=== PATIENT | male | born 1970 | race Caucasian/White ===

== ENCOUNTER 2019-04-01 14:51 | Inpatient (IN) | payer OTHER ==
[~2019-04-01 14:51] MED LIST: Iopamidol 300 61% 100 ML VIAL FS ONE
--- NOTE | 2019-04-01 15:22 | RAD ---
EXAM: XR Pelvis Minimum 3 Views DATE: 04/01/2019 3:08 PM INDICATION: History of trauma COMPARISON: None. FINDING: There is diastases of the symphysis pubis measuring 2.4 cm. There is contrast seen within t he bladder and distal ureters likely from prior IV contrast demonstration. There is circumferential wasting of the mid to lower bladder are suspicious for the presence of a pelvic hematoma, likely from the patient's pelvic ring injury. IMPRESSION:Mass effect on the mid to lower aspect of the bladder suspicious for presence of intrapelv ic hematoma. No extraluminal extravasation of contrast is seen from the bladder. Diastases of the symphysis pubis.
[2019-04-01] MEDS ORDERED: Fentanyl 100 MCG/2 ML VIAL ONE ×2 (16:05→16:08)
[2019-04-01] MEDS ORDERED: Morphine 4 MG/ML VIAL SLOW IVP PRN ×2 (16:11→19:43)
[2019-04-01] MEDS ORDERED: Dextrose 50% Abboject 50 ML SYRINGE SLOW IVP PRN (16:11)
[2019-04-01] MEDS ORDERED: Dextrose 5% in Water 1,000 ML IV PRN (16:11)
[2019-04-01] MEDS ORDERED: Ondansetron PF 4 MG/2 ML Vial IVP PRN (16:11)
[2019-04-01] MEDS ORDERED: Ondansetron ODT 4 MG TAB PO PRN (16:11)
[2019-04-01] MEDS ORDERED: hydrALAZINE 20 MG/ML VIAL SLOW IVP PRN (16:11)
[2019-04-01] MEDS ORDERED: CEFAZOLIN 2 GM in Premix Bag 1 BAG IVPB SCH (16:30)
--- NOTE | 2019-04-01 16:34 | RAD ---
EXAM: Retrograde urethrogram HISTORY: Report of blood at the urethral meatus COMPARISON: None FINDINGS: A retrograde urethrogram was performed by instilling contrast into the patient's urethra. T here is no evidence of leakage of contrast from the urethra and contrast passed back into the urinary bladder. IMPRESSION: Normal retrograde urethrogram
[2019-04-01 17:05] LABS: Hemoglobin 13.5 g/dL (14.0-18.0); Mean Corpuscular HGB CONC 34.7 g/dL (32.0-36.0); Mean Corpuscular Hemoglobin 31.7 pg (27.0-31.0); Mean Corpuscular Volume 91.5 fL (78.0-98.0); Mean Platelet Volume 7.1 fL (7.4-10.4); Platelet Count 227 thou/uL (130-400); RBC Distribution Width 11.6 % (11.5-14.5); Red Blood Cell (RBC) Count 4.24 mill/uL (4.70-6.10); White Blood Cell (WBC) Count 17.4 thou/uL (4.8-10.8)
--- NOTE | 2019-04-01 17:09 | HP ---
REQUESTING DOCTOR: Carli. CONSULTS: Orthopedic Surgery, Dr. Ray. CHIEF COMPLAINT: Pelvic pain. HISTORY OF PRESENT ILLNESS: This is a 49-year-old gentleman, who was a transfer from [facility] with a pelvic fracture, level 2 trauma activation. The patient was riding the horse as he works for the [employer] system, the horse bucked causing him to come up out of the saddle and land back on the saddle onto his buttocks. The patient reported immediate pain to the buttocks area. The patient denies any loss of consciousness or hitting his head. The patient was evaluated at [facility] ER, and a CT pelvis was obtained. The patient had no episodes of hypotension. The patient arrived via air ambulance, who also reports no episodes of hypotension. The patient was given morphine, Dilaudid, Zofran, and Toradol 30 mg for pain prior to arrival. The patient also received 1 L of normal saline prior to arrival. The patient is awake and alert with GCS 15. The patient's pain is well controlled at this time. PAST MEDICAL HISTORY: The patient reports pelvic fracture in 2001, nonoperative. ALLERGIES: DENIES ANY DRUG ALLERGIES. MEDICATIONS: Denies medication use. PAST SURGICAL HISTORY: Denies. FAMILY HISTORY: Reports dad with coronary artery disease and diabetes. REVIEW OF SYSTEMS: A 10-point review of systems is negative unless otherwise indicated in the above HPI. PHYSICAL EXAMINATION: VITAL SIGNS: Blood pressure 119/63, pulse 91, respirations 14, temperature 97.8 , SpO2 of 97% on room air. GENERAL: Well-appearing, middle-aged male, in no acute distress. HEENT: Head is atraumatic and normocephalic. Pupils are equal bilateral. Extraocular muscles are intact. Oropharynx exam is unremarkable. NECK: Normal range of motion. No cervical spine tenderness. Trachea, midline. RESPIRATORY: Equal chest rise and fall. Bilateral breath sounds clear. No wheezing, rales, or rhonchi. CARDIOVASCULAR: Regular rate. Regular rhythm. No murmurs. No pedal edema. GI: Abdomen is soft, nontender, and nondistended. Active bowel sounds. PELVIS: Minimal tenderness to palpation. Pelvic binder in place. EXTREMITIES: Moves all extremities. 2+ pulses in all extremities. Normal movement and sensation in all extremities. Strength is 5/5 in all extremities. NEUROLOGIC: No focal deficits. LABORATORY DATA: Pending. IMAGING STUDIES: Chest x-ray, no acute abnormality. Pelvis x-ray, impression; mass effect on the [id number] aspect of the bladder suspicious for presence of intrapelvic hematoma. No extraluminal extravasation of contrast seen from the bladder. Diastasis of the symphysis pubis. Retrograde cystourethrogram, negative. ASSESSMENT: 1. Bucked from horse landing on saddle. 2. Right sacral fracture. 3. Diastasis of the symphysis pubis. 4. Acute traumatic pain. PLAN: We will obtain a retrograde cystourethrogram. The patient has been evaluated by Orthopedic Surgery, Dr. Ray, who plans to take the patient to the OR tomorrow for repair of his right sacral fracture. We will place the patient on a pain regimen. The patient will be n.p.o. after midnight and placed on maintenance IV fluids normal saline at 100 mL an hour. The patient will be bedrest until postop. We will place a PT/OT consult to evaluate and treat postop. The patient was examined in the emergency room by Dr. Galaviz. The plan was discussed with the patient, who agrees. Job ID: [id number] MTDD
[2019-04-01 17:21] LABS: Band 12 % (5-11); Lymphocytes 6 % (21-51); MDiff Complete? YES; Monocytes 2 % (0-10); Neutrophil 79 % (42-75); Platelet Morphology Comment Appears Adequate; RBC Morphology Normal; Reactive Lymphocytes 1 % (0-10)
[2019-04-01] MEDS ORDERED: Adacel (T-DAP) 0.5 ML SYRINGE ONE (17:24)
[2019-04-01 17:28] LABS: ALT (SGPT) 25 U/L (8-55); AST (SGOT) 23 U/L (5-34); Albumin 3.7 g/dL (3.5-5.0); Alkaline Phosphatase 68 U/L (40-110); Anion Gap 15 mmol/L (10-20); BUN (Urea Nitrogen) 13 mg/dL (8.9-20.6); Bilirubin, Total 0.5 mg/dL (0.2-1.2); Calc. Creatinine Clearance 0 mL/min (70-130); Carbon Dioxide 20 mmol/L (22-29); Chloride 108 mmol/L (98-107); Estimated GFR-MDRD 89; Globulin 2.8 g/dL (2.4-3.5); Glucose 140 mg/dL (70-105); Potassium 4.6 mmol/L (3.5-5.1); Protein, Total 6.5 g/dL (6.0-8.3); Sodium 138 mmol/L (136-145)
[2019-04-01] MEDS: Sodium Chloride 0.9% 1,000 ML IV SCH (18:31)
[2019-04-01] MEDS ORDERED: Cyclobenzaprine 10 MG TAB PO PRN (19:44)
[2019-04-01] MEDS ORDERED: traMADol HCl 50 MG TAB PO PRN (19:44)
[2019-04-01] MEDS ORDERED: Famotidine/PF 20 mg/2ml Vial ONE (20:59)
[2019-04-01] MEDS ORDERED: traMADol HCl 50 MG TAB ONE (20:59)
[2019-04-01] MEDS: traMADol HCl 50 MG TAB PO PRN (21:08)
[2019-04-01] MEDS: Famotidine/PF 20 mg/2ml Vial SLOW IVP SCH (21:08)
[2019-04-01] MEDS: Senokot S 8.6-50 MG TAB PO SCH (21:35)
[2019-04-01 22:20] VITALS: BMI 28.8
[2019-04-01] MEDS: Acetaminophen 500 MG TAB PO SCH (23:00)
--- NOTE | 2019-04-02 01:17 | CON ---
DATE OF CONSULTATION: 04/01/2019 REQUESTING PHYSICIAN: Thomas Galaviz DO BRIEF HISTORY OF PRESENT ILLNESS: The patient is a 49-year-old gentleman, who was transferred from [facility] to [facility] for treatment of a pelvis injury. The patient reports that he was riding a horse when the horse bucked causing him to leave the saddle, and then upon landing back onto the saddle, he reports immediate pain in the right buttock and some pain in the groin area. There was no loss of consciousness. He was evaluated in the emergency room locally where CT scan of the pelvis was obtained that showed widening of the symphysis pubis, and with this finding, a phone consultation was performed with Dr. Thomas Galaviz, who agreed to accept the patient in transfer. The patient was air flighted down to [place] and patient now examined in the emergency room. He is awake and alert. Denies loss of consciousness and his principal complaint is that of right posterior sacral discomfort. Of note, the patient has a prior pelvis fracture in 2001 with nonsurgical management. Unfortunately, we do not have any records from this injury, its treatment, or any sequelae with respect to radiographic findings. PAST MEDICAL HISTORY: Otherwise healthy. PAST SURGICAL HISTORY: Negative. MEDICATIONS: None. ALLERGIES: NONE KNOWN. FAMILY HISTORY: Noncontributory for this fracture. SOCIAL HISTORY: Patient denies any tobacco use or alcohol use or recreational drug use. REVIEW OF SYSTEMS: No recent fevers, chills, or sweats. Denies chest pain or shortness of breath. Denies numbness or tingling in his lower extremities. PHYSICAL EXAMINATION: VITAL SIGNS: Temperature of 97.8, heart rate of 91, respiratory rate of 14, and blood pressure of 119/63. GENERAL: He was found to be awake, alert, and in no acute distress. He does have a pelvic binder on and appropriately positioned. HEENT: Atraumatic and normocephalic. HEART: Shows a regular rate and rhythm without murmur. LUNGS: Clear to auscultation bilaterally with excellent breath sounds. His chest wall is nontender. ABDOMEN: Flat, soft, and nontender. PELVIS: Remarkable for a pelvic binder that is in place. This binder was removed, and with aggressive compression of the iliac wings, only mild discomfort at the right sacrum was elicited. With separation of the iliac wings, no real pain is felt anteriorly. With deep palpation at the symphysis pubis, some mild discomfort is felt; however, this is quite mild and there is no evidence of hematoma or bruising at this time anteriorly. EXTREMITIES: Bilateral upper extremities are atraumatic at shoulder, elbow, wrist, and hand. He has intact sensation in the radial, median, and ulnar distributions. The lower extremities remarkable for normal motor function of the ankle and feet. He has excellent strength with dorsi and plantar flexion of the ankles. With log-rolling of the right thigh, however, he does feel pain at the right sacral region. Further testing of the proximal thigh was not performed due to the pain that this elicits within the pelvis. LABORATORY DATA: He was found to have a white count of 17.4, a hematocrit of 38.8, and platelets 227,000. X-RAYS: While in the emergency room, an AP pelvis as well as inlet and outlet x-rays were obtained, these remarkable for widening of the symphysis pubis with approximately 2 cm of widening. Unfortunately, there is contrast within the bladder from his workup at [facility], and as such, the sacrum cannot be well visualized. CT scan from [facility] of the pelvis was also reviewed. This is remarkable for a zone 2 right-sided sacral fracture with mild displacement. The SI joints appear anatomically positioned. He is found to have some beaking at the anterior portion of the sacroiliac joint consistent with a prior injury in this area. The acetabuli bilaterally are intact. I do not appreciate any pubic rami fractures. He does have this symphyseal widening, which on CT scan measures approximately 21 mm. ASSESSMENT: Horseback injury with pelvic ring injury consisting of right zone 2 sacral fracture with mild displacement and diastasis of the symphysis pubis. However, it is not clear whether this is acute, chronic, or acute on chronic given his past history of pelvic injury. PLAN: At this time, the patient is admitted to the Trauma Service. I have discussed with patient that we would like to proceed with repair of the right sacral fracture, and while he is in the operating room, perform an examination under anesthesia of the pelvic ring to see if he widens with distraction of the iliac wings to try and determine whether this symphysis diastasis is an acute finding. If indeed it is acute, we will proceed with plating anteriorly as well. Today, I briefly discussed with the patient the nature of this procedure. Informed consent will be obtained prior to surgery. He will be placed n.p.o. after midnight with plans to proceed with surgery tomorrow afternoon. Job ID: [id number]
[2019-04-02] MEDS: Sodium Chloride 0.9% 1,000 ML IV SCH ×4 (02:06→23:58)
[2019-04-02] MEDS: traMADol HCl 50 MG TAB PO PRN ×2 (02:32→09:26)
--- NOTE | 2019-04-02 03:37 | PRG ---
DATE OF SERVICE: 04/01/2019 SUBJECTIVE: The patient was seen this evening during rounds. He was lying in bed and comfortable. He reported that his pain had been well controlled, but he felt his pain medications were wearing off. Also reported that the pelvic binder appeared very tight. Dr. Ray did report it was okay to be loosened and I did that, the patient reported relief. Castillo is in place. OBJECTIVE: VITAL SIGNS: Temperature 98.7, pulse 92, respirations 16, oxygen saturation 96% on room air, and blood pressure 100/67. GENERAL: Well-appearing middle-aged male, lying in bed with no signs of acute distress. PULMONARY: Equal chest rise and fall. No signs of acute respiratory distress. ASSESSMENT: 1. Status post saddle injury from bucking horse. 2. Right sacral fracture. 3. Questionable intrapelvic hematoma. 4. History of pelvic fracture in 2001 with pubic symphysis widening. 5. Acute traumatic pain, improving. PLAN: Continue current n.p.o. at midnight. Normal saline at 100 an hour. Continue Castillo. Continue pelvic binder for comfort per Dr. Ray. The patient is to go to the OR tomorrow. Postoperatively, he will work with Physical and Occupational Therapy and will follow up weightbearing instructions from Orthopedic Surgery. Job ID: [id number]
[2019-04-02] MEDS: Acetaminophen 500 MG TAB PO SCH ×4 (05:11→23:52)
[2019-04-02 05:16] LABS: #Lymphocytes 2.4 thou/uL (1.20-3.40); #Monocytes 0.9 thou/uL (0.11-0.59); #Neutrophils 6.2 thou/uL (1.40-6.50); %Basophils 0.4 % (0.0-1.0); %Eosinophils 0.4 % (0.0-10.0); %Lymphocytes 24.8 % (21.0-51.0); %Monocytes 9.3 % (0.0-10.0); Mean Corpuscular Volume 91.7 fL (78.0-98.0); Mean Platelet Volume 7.1 fL (7.4-10.4); Platelet Count 203 thou/uL (130-400); RBC Distribution Width 11.7 % (11.5-14.5); Red Blood Cell (RBC) Count 3.35 mill/uL (4.70-6.10); White Blood Cell (WBC) Count 9.6 thou/uL (4.8-10.8)
[2019-04-02 05:34] LABS: Anion Gap 10 mmol/L (10-20); BUN (Urea Nitrogen) 15 mg/dL (8.9-20.6); Calc. Creatinine Clearance 113 mL/min (70-130); Calcium 7.7 mg/dL (7.8-10.44); Carbon Dioxide 22 mmol/L (22-29); Chloride 107 mmol/L (98-107); Estimated GFR-MDRD 82; Glucose 100 mg/dL (70-105); Magnesium 1.8 mg/dL (1.6-2.6); Sodium 135 mmol/L (136-145)
[2019-04-02 05:36] LABS: Phosphorus 3.7 mg/dL (2.3-4.7)
[2019-04-02] MEDS ORDERED: Magnesium Sulfate 2 GM in Sodium Chloride 0.9% 100 ML IVPB SCH (08:00)
[2019-04-02] MEDS ORDERED: Magnesium 2 GM/50 ML 2 GM in Premix Bag 1 BAG IVPB SCH (08:15)
[2019-04-02] MEDS ORDERED: Rocuronium Bromide 10 MG/ML (10ML VIAL) ONE (09:19)
[2019-04-02] MEDS ORDERED: Glycopyrrolate 0.2 MG/ML 5 ML SYRINGE ONE (09:19)
[2019-04-02] MEDS ORDERED: Metoclopramide HCl 10 MG/2 ML VIAL ONE (09:19)
[2019-04-02] MEDS ORDERED: PROPOFOL 200 MG/20 ML VIAL ONE (09:19)
[2019-04-02] MEDS ORDERED: Dexamethasone 20 MG/5 ML VIAL ONE (09:19)
[2019-04-02] MEDS ORDERED: Lidocaine 1% PF 5 ML VIAL ONE (09:19)
[2019-04-02] MEDS ORDERED: Ondansetron PF 4 MG/2 ML Vial ONE (09:19)
[2019-04-02] MEDS ORDERED: PHENYLEPHRINE-NS 100 MCG/ML 10 ML SYRINGE ONE (09:19)
[2019-04-02] MEDS: Famotidine/PF 20 mg/2ml Vial SLOW IVP SCH ×2 (09:21→21:15)
[2019-04-02] MEDS: Senokot S 8.6-50 MG TAB PO SCH ×2 (09:48→21:14)
[2019-04-02] MEDS: Polyethylene Glycol 3350 17 GM Packet PO SCH (09:48)
[2019-04-02] MEDS ORDERED: diphenhydrAMINE 25 MG CAP PO PRN (11:41)
[2019-04-02] MEDS ORDERED: HYDROmorphone 10 mg/100 ml CADD IVPB PRN (11:41)
[2019-04-02] MEDS ORDERED: Naloxone HCl 0.4 mg/ml Vial IV PRN (11:41)
[2019-04-02] MEDS ORDERED: Promethazine HCl 25 MG/ML VIAL IM PRN ×2 (11:41→13:01)
[2019-04-02] MEDS ORDERED: diphenhydrAMINE 50 MG/ML VIAL IM PRN (11:41)
[2019-04-02] MEDS ORDERED: diphenhydrAMINE 50 MG/ML VIAL IVP PRN (11:41)
[2019-04-02] MEDS ORDERED: Communication Order-Pharmacy FS SCH (11:45)
[2019-04-02] MEDS ORDERED: Fentanyl 100 MCG/2 ML VIAL ONE (12:08)
--- NOTE | 2019-04-02 12:22 | PDOC.GSPN ---
Surgery Progress Note: Subj - Subjective Narrative: Pt is a 49 year old M s/p R sacral fracture and pubic symphisis diastasis sustained after getting bucked off horse and landing back on saddle, post injury day 1. Patient is doing well. Patient reports pain is tolerable when not moving or coughing. Denies CP, SOB. He is NPO in preparation for surgery today. Surgery Progress Note: Obj - Vital signs Vital signs: Vital Signs - Most Recent Temp Pulse Resp BP Pulse Ox 98.0 F 80 18 105/65 94 L 04/02/19 08:01 04/02/19 08:01 04/02/19 08:01 04/02/19 08:01 04/02/19 09:21 - Physical Exam General: no distress, well developed, well nourished Cardiovascular: regular rate and rhythm Respiratory: clear to auscultation, normal expansion, normal respiratory effort Abdomen: soft, non tender, nondistended, positive bowel sounds Psychiatric: memory intact, oriented to time, oriented to person, oriented to place Additional exam: Castillo catheter is placed. No evidence of gross hematuria. Surgery Progress Note: Results - Labs Result Diagrams: 04/04/19 04:54 04/04/19 04:54 Lab results: Laboratory Results - last 24 hr 04/02/19 04/02/19 04/02/19 04:40 04:40 04:40 WBC 9.6 RBC 3.35 L Hgb 11.0 L Hct 30.7 L MCV 91.7 MCH 33.0 H MCHC 36.0 RDW 11.7 Plt Count 203 MPV 7.1 L Neutrophils % 65.0 Lymphocytes % 24.8 Monocytes % 9.3 Eosinophils % 0.4 Basophils % 0.4 Neutrophils # 6.2 Lymphocytes # 2.4 Monocytes # 0.9 H Eosinophils # 0.0 Basophils # 0.0 Sodium 135 L Potassium 4.0 Chloride 107 Carbon Dioxide 22 Anion Gap 10 BUN 15 Creatinine 0.98 Estimated GFR (MDRD) 82 Glucose 100 Calcium 7.7 L Phosphorus 3.7 Magnesium 1.8 Surgery Progress Note: A/P - Plan Plan: Assessment: 1. s/p bucked off horse and landing on saddle 2. Right sacral fracture 3. Pubic symphisis diastasis 4. History of previous pelvic fracture in 2001, treated non operatively Plan: 1. OR today for repair of sacral fracture and evaluation and possible treatment of pubic symphasis diastasis 2. PT/OT postoperatively 3. 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 DVT PPX postoperatively Addendum - Physician - Physician Attestation Date/Time: 04/04/19 1151 I personally performed or re-performed the physical examination and medical decision making. I have verified all student documentation or findings, including history, physical exam and/or medical decision making.
[2019-04-02] MEDS ORDERED: Meperidine HCl/PF 25 MG/ML VIAL SLOW IVP PRN (13:01)
[2019-04-02] MEDS ORDERED: Promethazine HCl 25 MG/ML VIAL SLOW IVP PRN (13:01)
[2019-04-02] MEDS ORDERED: HYDROmorphone 2 MG/ML VIAL SLOW IVP PRN (13:01)
[2019-04-02] MEDS ORDERED: HYDROmorphone 2 MG/ML VIAL ONE (13:51)
--- NOTE | 2019-04-02 14:14 | RAD ---
EXAM: XR Pelvis AP STANDARD PROVIDED CLINICAL HISTORY: ORIF pelvis COMPARISON: None FINDINGS: 2 long screws overlie the sacrum and right sacroiliac joint. A metallic plate and multiple screws tra nsfix the pubic bones and superior pubic rami. The second and third screws from the right extend just distal to the cortex of the pubic bone and inferior pubic ramus. Skin clips overlie the lower pe lvis. Temperature probe is seen overlying the midline. IMPRESSION: ORIF pelvis as described above.
[2019-04-02] MEDS ORDERED: Meperidine HCl/PF 25 MG/ML VIAL ONE (14:43)
[2019-04-02 15:57] LABS: #Eosinphils 0.1 thou/uL (0.0-0.7); #Lymphocytes 1.8 thou/uL (1.20-3.40); #Monocytes 0.6 thou/uL (0.11-0.59); #Neutrophils 10.3 thou/uL (1.40-6.50); %Basophils 0.2 % (0.0-1.0); %Eosinophils 0.9 % (0.0-10.0); %Monocytes 4.4 % (0.0-10.0); %Neutrophils 80.5 % (42.0-75.0); Hemoglobin 11.8 g/dL (14.0-18.0); Mean Corpuscular HGB CONC 34.7 g/dL (32.0-36.0); Mean Corpuscular Hemoglobin 32.3 pg (27.0-31.0); Mean Corpuscular Volume 93.1 fL (78.0-98.0); Mean Platelet Volume 7.3 fL (7.4-10.4); Platelet Count 188 thou/uL (130-400); RBC Distribution Width 11.7 % (11.5-14.5); Red Blood Cell (RBC) Count 3.64 mill/uL (4.70-6.10); White Blood Cell (WBC) Count 12.8 thou/uL (4.8-10.8)
[2019-04-02] MEDS: CEFAZOLIN 2 GM in Premix Bag 1 BAG IVPB SCH (21:14)
--- NOTE | 2019-04-02 22:31 | OP ---
DATE OF PROCEDURE: 04/02/2019 PROCEDURES PERFORMED: Open reduction and internal fixation of unstable pelvic fracture including pubic symphysis plating and right sacroiliac screw placement. PREOPERATIVE DIAGNOSIS: Unstable pelvic ring fracture with sacral fracture and pubic symphysis disruption. POSTOPERATIVE DIAGNOSIS: Unstable pelvic ring fracture with sacral fracture and pubic symphysis disruption. COMPLICATIONS: None. ESTIMATED BLOOD LOSS: 100 mL. CO-SURGEON: Steven Ray MD IMPLANTS: Synthes 6-hole pubic symphysis plate was utilized and two 7.3 mm cannulated screws. INDICATIONS: Mr. Andrew is a 49-year-old male, who was injured while being bucked from a horse. He fractured his pelvis. He was deemed to have an unstable pelvic fracture and was indicated for operative intervention. Risks have been reviewed in detail. He wanted to proceed with the operation. DESCRIPTION OF PROCEDURE: Mr. Andrew was identified in the preoperative holding area. His correct extremities were marked. He was carried to the operating room. He was positioned supine. General anesthesia was induced. At this point, we used intraoperative fluoroscopy to stress his pubic symphysis. He had a large amount of mobility and diastasis and clearly had an unstable fracture. We prepped and draped the pelvis at this point and proceeded with fixation. We made an anterior incision over the pubic symphysis in a Pfannenstiel type incision. We dissected down through the subcutaneous tissues to the rectus abdominus. It was split. We then exposed the disrupted pubic symphysis. We placed a lap sponge over the bladder to protect the bladder. Next, we removed hematoma as well as damaged cartilage from the pubic symphysis. We reduced the fracture using a reduction forceps. We then applied a 6-hole pubic symphyseal plate. Six screws were placed. We guided these with intraoperative x-ray. This concluded the anterior aspect of the surgery. Next, we moved to the sacrum. We obtained appropriate inlet and outlet x-ray views as well as a lateral view of the sacrum. We obtained appropriate start point for a guidewire. We placed two guidewires in the S1 body through the ileum. These were guided carefully with intraoperative x-ray. We overdrilled the guidewires. We then placed two 7.3 mm cannulated screws. These were compressed appropriately to reduce our fracture. We took final images. The patient was taken to the recovery room at this point in good condition without complication. Job ID: [id number]
--- NOTE | 2019-04-03 00:40 | PRG ---
DATE OF SERVICE: 04/02/2019 SUBJECTIVE: The patient was seen this evening during rounds. He is postoperative day 0 after fixation of his right sacral fracture with associated diastasis of the pubic symphysis. At the time of my evaluation, he was resting comfortably and asleep with no signs of acute distress. OBJECTIVE: VITAL SIGNS: Temperature 99.1, pulse 100, respirations 16, oxygen saturation 99% on 2 L nasal cannula, and blood pressure 106/66. GENERAL: Well-appearing middle-aged male, lying in bed, asleep, with no signs of acute distress. PULMONARY: Equal chest rise and fall. No signs of acute respiratory distress. ASSESSMENT: 1. Status post saddle injury from bucking horse. 2. Right sacral fracture, status post repair. 3. Concerning for intrapelvic hematoma, stable. 4. History of pelvic fracture in 2001 with pubic symphysis widening. 5. Acute traumatic pain, improving. PLAN: Continue current regular diet. Continue IV fluids overnight. We will discontinue in the morning. We are sure the patient is tolerating his diet. 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 He will start to work with Physical and Occupational Therapy in the morning. Job ID: [id number]
[2019-04-03] MEDS: CEFAZOLIN 2 GM in Premix Bag 1 BAG IVPB SCH ×2 (04:06→12:42)
[2019-04-03 05:27] LABS: Anion Gap 9 mmol/L (10-20); BUN (Urea Nitrogen) 10 mg/dL (8.9-20.6); Calc. Creatinine Clearance 115 mL/min (70-130); Calcium 7.7 mg/dL (7.8-10.44); Carbon Dioxide 27 mmol/L (22-29); Chloride 105 mmol/L (98-107); Estimated GFR-MDRD 83; Glucose 99 mg/dL (70-105); Magnesium 1.9 mg/dL (1.6-2.6); Phosphorus 1.9 mg/dL (2.3-4.7); Potassium 3.8 mmol/L (3.5-5.1); Sodium 137 mmol/L (136-145)
[2019-04-03 05:34] LABS: Band 5 % (5-11); Hemoglobin 9.9 g/dL (14.0-18.0); Lymphocytes 16 % (21-51); MDiff Complete? YES; Mean Corpuscular HGB CONC 35.2 g/dL (32.0-36.0); Mean Corpuscular Hemoglobin 32.1 pg (27.0-31.0); Mean Corpuscular Volume 91.2 fL (78.0-98.0); Monocytes 9 % (0-10); Neutrophil 70 % (42-75); Platelet Count 177 thou/uL (130-400); Platelet Morphology Comment Appears Adequate; RBC Distribution Width 11.3 % (11.5-14.5); Red Blood Cell (RBC) Count 3.09 mill/uL (4.70-6.10); White Blood Cell (WBC) Count 9.1 thou/uL (4.8-10.8)
[2019-04-03] MEDS: Acetaminophen 500 MG TAB PO SCH ×4 (05:52→23:18)
[2019-04-03] MEDS ORDERED: Sodium Phosphate 30 MMOL in Sodium Chloride 0.9% 250 ML 250 ML IVPB SCH (06:00)
[2019-04-03] MEDS: Polyethylene Glycol 3350 17 GM Packet PO SCH (08:43)
[2019-04-03] MEDS: Senokot S 8.6-50 MG TAB PO SCH ×2 (08:43→20:23)
--- NOTE | 2019-04-03 10:50 | PDOC.GSPN ---
Surgery Progress Note: Subj - Subjective Narrative: Pt is a 49 year old male POD1 following repair of R sacral fracture and plating of pubic symphasis. Patient is doing well. Tolerating regular diet. Pain control is improved. Does report some mild swelling around the urinary meatus. Surgery Progress Note: Obj - Vital signs Vital signs: Vital Signs - Most Recent Temp Pulse Resp BP Pulse Ox 99.2 F 98 12 100/61 96 04/03/19 07:30 04/03/19 07:30 04/03/19 07:30 04/03/19 07:30 04/03/19 08:43 - Physical Exam General: no distress, well developed, well nourished Cardiovascular: regular rate and rhythm Respiratory: clear to auscultation Abdomen: soft, non tender, nondistended Psychiatric: memory intact, oriented to time, oriented to person, oriented to place, speech is normal Additional exam: Chua: No evidence of gross hematuria. Urine looks concentrated however it is improving following increased PO intake Surgery Progress Note: Results - Labs Result Diagrams: 04/04/19 04:54 04/04/19 04:54 Lab results: Laboratory Results - last 24 hr 04/03/19 04/03/19 04:46 04:46 WBC 9.1 RBC 3.09 L Hgb 9.9 L Hct 28.2 L MCV 91.2 MCH 32.1 H MCHC 35.2 RDW 11.3 L Plt Count 177 MPV 7.0 L Neutrophils % (Manual) 70 Band Neuts % (Manual) 5 Lymphocytes % (Manual) 16 L Monocytes % (Manual) 9 Plt Morphology Comment Appears Adequate Sodium 137 Potassium 3.8 Chloride 105 Carbon Dioxide 27 Anion Gap 9 L BUN 10 Creatinine 0.97 Estimated GFR (MDRD) 83 Glucose 99 Calcium 7.7 L Phosphorus 1.9 L Magnesium 1.9 Surgery Progress Note: A/P - Plan Plan: Assessment: 1. s/p bucked off horse and landing on saddle 2. Right sacral fracture, POD1 following repair 3. Pubic symphisis diastasis, POD1 following repair 4. History of previous pelvic fracture in 2001, treated non operatively Plan: -Continue PT/OT and seek their recommendations regarding placement, likely dc home or short term rehab -Lovenox for DVT PPX -Consider d/c chua catheter as long as there is no concern for gross hematuria -Continue pain management. Currently on dilauded TREE LOADER MEAT, will need to transition to PO meds soon Patient was discussed with Dr. Galaviz during morning rounds. Patient was seen at bedside with the trauma team. All were in agreement regarding the plan. Addendum - Physician - Physician Attestation Date/Time: 04/04/19 8276 I personally performed or re-performed the physical examination and medical decision making. I have verified all student documentation or findings, including history, physical exam and/or medical decision making.
[2019-04-03] MEDS ORDERED: Sodium Chloride 0.9% 1,000 ML IV SCH (16:38)
[2019-04-03] MEDS: Sodium Chloride 0.9% 1,000 ML IV SCH (16:50)
--- NOTE | 2019-04-03 23:57 | PRG ---
DATE OF SERVICE: 04/03/2019 SUBJECTIVE: The patient was seen this evening during rounds. He is resting comfortably and asleep with no signs of acute distress. Nursing reported no acute events. OBJECTIVE: VITAL SIGNS: Temperature 98.5, pulse 98, respirations 16, oxygen saturation 97% on room air, blood pressure 114/56. GENERAL: Well-appearing middle-aged male, lying in bed, asleep with no signs of acute distress. PULMONARY: Equal chest rise and fall. No signs of acute respiratory distress. ASSESSMENT: 1. Status post saddle injury from horse bucking. 2. Right sacral fracture with diastasis of pubic symphysis, status post repair. 3. Possible intrapelvic hematoma. 4. History of pelvic fracture in 2001 with no surgery. PLAN: Continue current regular diet. 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 The patient started on Lovenox today. We will consider discontinuing Castillo tomorrow if swelling to his genital area has decreased. Repeat blood work in the morning. Job ID: [id number]
[2019-04-04 05:11] LABS: #Eosinphils 0.3 thou/uL (0.0-0.7); #Lymphocytes 1.7 thou/uL (1.20-3.40); #Monocytes 0.6 thou/uL (0.11-0.59); #Neutrophils 5.9 thou/uL (1.40-6.50); %Basophils 0.2 % (0.0-1.0); %Lymphocytes 20.3 % (21.0-51.0); %Monocytes 7.4 % (0.0-10.0); Hemoglobin 9.7 g/dL (14.0-18.0); Mean Corpuscular HGB CONC 35.4 g/dL (32.0-36.0); Mean Corpuscular Hemoglobin 32.4 pg (27.0-31.0); Mean Corpuscular Volume 91.5 fL (78.0-98.0); Mean Platelet Volume 6.7 fL (7.4-10.4); Platelet Count 181 thou/uL (130-400); RBC Distribution Width 11.6 % (11.5-14.5); Red Blood Cell (RBC) Count 3.01 mill/uL (4.70-6.10); White Blood Cell (WBC) Count 8.6 thou/uL (4.8-10.8)
[2019-04-04 06:01] LABS: Anion Gap 12 mmol/L (10-20); BUN (Urea Nitrogen) 8 mg/dL (8.9-20.6); CK (CPK) 1883 U/L (30-200); Calc. Creatinine Clearance 148 mL/min (70-130); Calcium 7.9 mg/dL (7.8-10.44); Carbon Dioxide 23 mmol/L (22-29); Chloride 105 mmol/L (98-107); Estimated GFR-MDRD Greater than 90; Glucose 93 mg/dL (70-105); Magnesium 1.8 mg/dL (1.6-2.6); Phosphorus 2.3 mg/dL (2.3-4.7); Potassium 3.6 mmol/L (3.5-5.1); Sodium 136 mmol/L (136-145)
[2019-04-04] MEDS: Acetaminophen 500 MG TAB PO SCH ×4 (06:17→23:19)
[2019-04-04] MEDS: Senokot S 8.6-50 MG TAB PO SCH ×2 (09:04→20:48)
[2019-04-04] MEDS: Enoxaparin Sodium 40 MG/0.4 ML SYRINGE SC SCH (09:04)
[2019-04-04] MEDS: Polyethylene Glycol 3350 17 GM Packet PO SCH (09:05)
[2019-04-04] MEDS: Dexamethasone 4 mg/ml Vial SLOW IVP SCH ×3 (09:55→20:49)
[2019-04-04] MEDS: Ibuprofen 600 MG TAB PO SCH ×3 (10:06→20:48)
--- NOTE | 2019-04-04 12:15 | PDOC.GSPN ---
Surgery Progress Note: Subj - Subjective Narrative: Pt is a 49 year old male POD2 for repair of R sacral fracture and plating of pubic symphasis. Patient is doing well, tolerating regular diet without any N/ V. Pain is currently being controlled with dilauded HIDE CLEANER. Patient has chua catheter placed with no evidence of gross hematuria. Patient does report scrotal swelling that is slightly improved. Patient ambulating well with PT. Surgery Progress Note: Obj - Vital signs Vital signs: Vital Signs - Most Recent Temp Pulse Resp BP Pulse Ox 98.7 F 107 H 12 99/65 95 04/04/19 10:07 04/04/19 10:07 04/04/19 10:07 04/04/19 10:07 04/04/19 10:07 - Physical Exam General: no distress, well developed, well nourished Cardiovascular: regular rate and rhythm Respiratory: clear to auscultation Abdomen: soft, non tender, positive bowel sounds Genitourinary (Male): other (mild scrotal swelling present, mild swelling around urinary meatus) Additional exam: Chua catheter with no evidence of gross hematuria. Surgery Progress Note: Results - Labs Result Diagrams: 04/05/19 05:21 04/04/19 04:54 Lab results: Laboratory Results - last 24 hr 04/04/19 04/04/19 04:54 04:54 WBC 8.6 RBC 3.01 L Hgb 9.7 L Hct 27.5 L MCV 91.5 MCH 32.4 H MCHC 35.4 RDW 11.6 Plt Count 181 MPV 6.7 L Neutrophils % 69.0 Lymphocytes % 20.3 L Monocytes % 7.4 Eosinophils % 3.0 Basophils % 0.2 Neutrophils # 5.9 Lymphocytes # 1.7 Monocytes # 0.6 H Eosinophils # 0.3 Basophils # 0.0 Sodium 136 Potassium 3.6 Chloride 105 Carbon Dioxide 23 Anion Gap 12 BUN 8 L Creatinine 0.75 Estimated GFR (MDRD) Greater than 90 Glucose 93 Calcium 7.9 Phosphorus 2.3 Magnesium 1.8 Creatine Kinase 1883 H Surgery Progress Note: A/P - Plan Plan: Assessment: 1. s/p bucked off horse and landing on saddle 2. Right sacral fracture, POD2 following repair 3. Pubic symphisis diastasis, POD2 following repair 4. History of previous pelvic fracture in 2001, treated non operatively Plan: -Continue PT/OT while in the hospital. Patient would like go home with outpatient physical therapy -Lovenox for DVT PPX -Mild scrotal swelling. Will administer Decadraon 4mg Q6 x4 doses and reassess scrotal swelling. Urinary catheter can be d/c if there is improvement in swelling either Sunday or Sunday. -Continue Dilauded HIDE CLEANER for 24 hours. Patient has been started on PO pain medications today. Patient instructed to use HIDE CLEANER only after exhausting PO scheduled and PRN medications. We will assess how frequently he is using HIDE CLEANER tomorrow morning and make adjustments to PO pain meds as needed. Patient was seen at beside during morning rounds with Dr Galaviz. Plan was discussed and all were in agreement. Addendum - Physician - Physician Attestation Date/Time: 04/06/19 3800 I personally performed or re-performed the physical examination and medical decision making. I have verified all student documentation or findings, including history, physical exam and/or medical decision making.
[2019-04-04] MEDS: traMADol HCl 50 MG TAB PO SCH ×3 (13:05→23:19)
--- NOTE | 2019-04-04 22:57 | PRG ---
DATE OF SERVICE: 04/04/2019 SUBJECTIVE: The patient was seen this evening during rounds. He was sitting up in bed, awake and alert with no signs of acute distress. We are starting to wean the patient's Dilaudid VETERINARY SURGEON. We have started him on p.o. medications and the frequency of the Dilaudid VETERINARY SURGEON has greatly decreased. The patient reports pain is well controlled. Castillo is still in place. The patient was also started on Decadron for scrotal edema secondary to straddle trauma. OBJECTIVE: VITAL SIGNS: Temperature 98.4, pulse 80, respirations 16, oxygen saturation 98% on room air, blood pressure 107/68. GENERAL: Well-appearing middle-aged male, sitting up in bed with no signs of acute distress. PULMONARY: Equal chest rise and fall. No signs of acute respiratory distress. ASSESSMENT: 1. Status post straddle injury from horse bucking. 2. Right sacral fracture with pubic symphysis diastasis. 3. Concern for possible intrapelvic hematoma, stable. 4. History of pelvic fracture in 2001 with no surgery. PLAN: Continue current diet. We will continue the VETERINARY SURGEON for breakthrough pain overnight. It is due to at midnight at that time. We will discontinue the VETERINARY SURGEON and only use p.o. pain medications. The patient did ask to speak to Orthopedic surgery again to go over weightbearing instructions on a long-term basis. We will contact him tomorrow and ask them to visit with the patient again. We will consider discontinuing the Castillo tomorrow, if his scrotal edema has improved. We will continue the Decadron until we can re-evaluate in the morning. Job ID: [id number]
[2019-04-05] MEDS: Dexamethasone 4 mg/ml Vial SLOW IVP SCH (03:03)
[2019-04-05] MEDS: Acetaminophen 500 MG TAB PO SCH ×4 (05:34→23:29)
[2019-04-05] MEDS: traMADol HCl 50 MG TAB PO SCH ×4 (05:34→23:29)
[2019-04-05 05:43] LABS: #Lymphocytes 1.1 thou/uL (1.20-3.40); #Monocytes 0.3 thou/uL (0.11-0.59); #Neutrophils 9.5 thou/uL (1.40-6.50); %Eosinophils 0.2 % (0.0-10.0); %Lymphocytes 10.1 % (21.0-51.0); %Monocytes 2.3 % (0.0-10.0); %Neutrophils 87.3 % (42.0-75.0); Hemoglobin 10.6 g/dL (14.0-18.0); Mean Corpuscular HGB CONC 36.2 g/dL (32.0-36.0); Mean Corpuscular Hemoglobin 32.8 pg (27.0-31.0); Mean Corpuscular Volume 90.5 fL (78.0-98.0); Mean Platelet Volume 6.9 fL (7.4-10.4); Platelet Count 209 thou/uL (130-400); RBC Distribution Width 11.3 % (11.5-14.5); Red Blood Cell (RBC) Count 3.24 mill/uL (4.70-6.10); White Blood Cell (WBC) Count 10.9 thou/uL (4.8-10.8)
[2019-04-05] MEDS: Polyethylene Glycol 3350 17 GM Packet PO SCH (08:41)
[2019-04-05] MEDS: Ibuprofen 600 MG TAB PO SCH ×3 (08:42→20:15)
[2019-04-05] MEDS: Enoxaparin Sodium 40 MG/0.4 ML SYRINGE SC SCH (08:42)
[2019-04-05] MEDS: Senokot S 8.6-50 MG TAB PO SCH ×2 (08:42→20:15)
[2019-04-05] MEDS: traMADol HCl 50 MG TAB PO PRN ×2 (08:45→17:11)
[2019-04-05] MEDS: Gabapentin 300 MG CAP PO SCH ×2 (14:31→20:16)
--- NOTE | 2019-04-05 14:55 | PRG ---
DATE OF SERVICE: 04/05/2019 SUBJECTIVE: The patient remains on the surgical floor, hospital day #4. The patient is awake and alert, in no distress. The patient reports his pain is well controlled. The patient continues to have scrotal swelling. The patient has been ambulating in the hallways without any difficulty. The patient continues to tolerate a regular diet. The patient continues to have adequate urinary output. The patient's Castillo remains in place due to edema. OBJECTIVE: VITAL SIGNS: Temperature 97.7, pulse 87, respirations 18, SpO2 of 97% on room air, and blood pressure 110/67. GENERAL: Well-appearing gentleman, awake, alert, and sitting up in hospital chair. PULMONARY: Equal chest rise and fall, no respiratory distress. ABDOMEN: Soft, nontender, and nondistended. EXTREMITIES: Moves all extremities. No focal deficits. No ankle edema. NEUROLOGIC: No focal deficits. LABORATORY DATA: WBC 10.9, RBC 3.24, hemoglobin 10.6, hematocrit 29.4, and platelets 209. DIAGNOSTICS: There is no diagnostics to review today. ASSESSMENT: 1. Status post straddle injury from horse bucking. 2. Right sacral fracture with pubic symphysis diastasis. 3. Concern for possible intrapelvic hematoma, stable. 4. History of pelvic fracture in 2001 with no surgery. PLAN: Continue current diet. The patient's LOGGING EQUIPMENT OPERATOR has been discontinued. We will add gabapentin to the patient's pain regimen. We will discontinue the patient's Castillo catheter later today and monitor that he is able to urinate. Continue physical and occupational therapy. Most likely, the patient should be able to be discharged home tomorrow, if his pain is still well controlled and he is able to urinate without any difficulties. The plan was discussed with the patient, who agrees. The plan was discussed with the attending, who agrees. Job ID: [id number]
--- NOTE | 2019-04-06 03:42 | PRG ---
DATE OF SERVICE: 04/05/2019 SUBJECTIVE: The patient was seen this evening during rounds. He was sitting up in bed, awake and alert with no signs of acute distress. He reported pain was well controlled. Castillo discontinued this afternoon and the patient was able to void without difficulties. OBJECTIVE: VITAL SIGNS: Temperature 97.9, pulse 96, respirations 17, oxygen saturation 97% on room air, and blood pressure 105/68. GENERAL: Well-appearing middle-aged male, sitting up in bed with no signs of acute distress. PULMONARY: Equal chest rise and fall. No signs of acute respiratory distress. ASSESSMENT: 1. Status post saddle injury from bucking horse. 2. Right sacral fracture with diastasis of the pubic symphysis, status post repair. 3. Possible intrapelvic hematoma. 4. History of pelvic fracture in 2001 with no surgery. PLAN: Continue current diet and pain regimen. Continue physical and occupational therapy. The patient is now voiding without Castillo and without difficulty. He will likely be discharged home in the morning with outpatient physical therapy. Job ID: [id number]
[2019-04-06] MEDS: Acetaminophen 500 MG TAB PO SCH ×2 (05:54→11:58)
[2019-04-06] MEDS: traMADol HCl 50 MG TAB PO SCH ×2 (05:54→11:59)
[2019-04-06] MEDS: Senokot S 8.6-50 MG TAB PO SCH (08:32)
[2019-04-06] MEDS: Polyethylene Glycol 3350 17 GM Packet PO SCH (08:32)
[2019-04-06] MEDS: Ibuprofen 600 MG TAB PO SCH (08:32)
[2019-04-06] MEDS: Enoxaparin Sodium 40 MG/0.4 ML SYRINGE SC SCH (08:32)
[2019-04-06] MEDS: Gabapentin 300 MG CAP PO SCH (08:32)
[2019-04-06] MEDS: traMADol HCl 50 MG TAB PO PRN (12:04)
[2019-04-06 13:40] VITALS: BP 103/65; TEMP 97.6
--- NOTE | 2019-04-06 17:48 | DIS ---
DATE OF ADMISSION: 04/01/2019 DATE OF DISCHARGE: 04/06/2019 This is Yohana Vickers NP dictating a report for Thomas Galaviz DO. CONSULTS: Orthopedic Surgery, Dr. Ray. PROCEDURES: 1. On 04/01/2019, pelvis x-ray, impression, mass effect on the [id number] aspect of the bladder suspicious for presence of intrapelvic hematoma. No extraluminal extravasation of contrast seen from the bladder. Diastasis of the symphysis pubis. 2. On 04/01/2019, retrograde cystourethrogram negative. 3. On 04/02/2019, open reduction and internal fixation of unstable pelvic fracture including pubic symphysis plating and right sacroiliac screw placement by Dr. Morillo and Dr. Ray. 4. Status post being bucked from horse landing on the saddle. 5. Right sacral fracture with diastasis of the pubic symphysis. 6. Scrotal swelling. 7. History of pelvic fracture in 2001, nonsurgical. DISCHARGE MEDICATIONS: 1. Flexeril 10 mg p.o. 3 times a day as needed for muscle spasms, #30. 2. Gabapentin 300 mg p.o. 3 times a day, #60. 3. Tramadol 50 mg p.o. q.6 hours p.r.n. pain, #80. 4. Tylenol 1000 mg q.6 hours. 5. Ibuprofen 600 mg 3 times a day. 6. MiraLAX as needed for constipation. 7. Senokot as needed for constipation. HISTORY OF PRESENT ILLNESS AND HOSPITAL COURSE: This is a 49-year-old gentleman , who was a transfer from [facility] with a pelvic fracture, level 2 trauma activation. The patient was riding a horse while working for the [employer] system , the horse bucked caused him to come out of the saddle and landed back on the saddle onto his buttocks. The patient reported immediate pain to the buttocks area. The patient did not lose any consciousness or did not hit his head. The patient denied any other pain or injuries. The patient was evaluated in the [facility] ER, and a CT of pelvis was obtained. The patient's vital signs were stable before transfer and he remained stable during his hospital course. The patient's pain was well controlled with a INJECTION MOLDING MACHINE OPERATOR Dilaudid pump. The patient was eventually weaned from the pump and was tolerating p.o. pain medications. His pain regimen did control his pain and was able to walk and participate with physical therapy without any difficulties. The patient was placed on steroids for his scrotal swelling and his Castillo catheter was eventually discontinued. The patient had no issues voiding after the Castillo catheter was discontinued. The patient continued to have some scrotal swelling. The patient tolerated a regular diet. On the day of discharge, the patient's vital signs were stable. The patient's exam was unremarkable including cardiopulmonary and GI exam. The patient was deemed stable for discharge home. DISPOSITION: Stable. DISCHARGE INSTRUCTIONS: 1. Location: Home with outpatient physical therapy. 2. Diet: Regular diet as tolerated. 3. Activity: Orthopedic limitations. The patient is toe touch only to right lower extremity, weightbearing as tolerated in all other extremities. 4. Followup: Follow up with Dr. Ray in 10 days. No need to follow up with Trauma Services. Please call for any questions. The [employer] was accessed and the has no recent history of prescriptions. Job ID: [id number] [facility]
== END 2019-04-06 13:45 | disposition home or self-care (01) | DRG 519 ==
LOC: ERS 14:51 → ERHOLD 16:15 → SURG A 21:10
PROVIDERS: ADMIT Surgery; ATTEND Surgery
PROC: 0QS104Z Reposition Sacrum with Internal Fixation Device, Open Approach (ICD-10-PCS; principal; 2019-04-02)
PROC: 0QS204Z Reposition Right Pelvic Bone with Internal Fixation Device, Open Approach (ICD-10-PCS; 2019-04-02)
DX: S32.121A Minimally displaced Zone II fracture of sacrum, initial encounter for closed fracture (principal); S32.501A Unspecified fracture of right pubis, initial encounter for closed fracture; V80.010A Animal-rider injured by fall from or being thrown from horse in noncollision accident, initial encounter
CPT/HCPCS: 36415; 51610; 51702; 72170; 72190; 74450; 76000; 80048; 80053; 82550; 83735; 84100; 85007; 85025; 85027; 86850; 86900; 86901; 90471; 90715; 96374; 96376; C1713; C1769; G0390; J0690; J1100; J1170; J1650; J2001; J2175; J2405; J2704; J2765; J3010; J3475; J7050; Q0162; Q9967; S0028

== ENCOUNTER 2019-08-19 14:12 | Outpatient (CLI) | payer OTHER ==
--- NOTE | 2019-08-19 15:17 | CT ---
Exam: CT pelvis without contrast HISTORY: Previous fracture. Persistent left-sided pain. Evaluate for nonunion Comparison none FINDINGS: Visualized intrapelvic structures do not demonstrate any acute abnormality. There is atroph y of the inferior most aspect of the right abdominal rectus muscle near its insertion into the symphysis pubis. Urinary bladder has a normal appearance. Presacral fat is preserved. There is internal fixation hardware spanning both superior pubic rami and the symphysis pubis. No per ihardware lucency. Bilateral obturator rings, iliac wings and femoral necks/femoral heads are intact. Symmetric hip joint spaces. Redemonstration of a vertically oriented fracture involving the S1, S2, S3, S4 vertebral bodies as we ll as the coccyx. This fracture is just to the right of midline and does involve the right S1 neural foramen. Fracture lucency does persist. The fracture lucency is traversed by 2 separate landscape maintenance internship al fixation screws. The right SI joint is still patent. No perihardware lucency. IMPRESSION: Nonunion of a sacrococcygeal fracture.
== END 2019-08-19 14:13 | disposition home or self-care (01) ==
LOC: BICCT 14:12
PROVIDERS: ATTEND Orthopaedic Surgery
DX: S32.811D Multiple fractures of pelvis with unstable disruption of pelvic ring, subsequent encounter for fracture with routine healing (principal); S32.10XK Unspecified fracture of sacrum, subsequent encounter for fracture with nonunion
CPT/HCPCS: 72192